=== PATIENT | female | born 1985 | race Two or more races ===

== ENCOUNTER 2022-01-02 07:40 | Emergency (ER) | payer OTHER ==
[~2022-01-02] VITALS: Ht 154.9 cm; Wt 86.2 kg
[2022-01-02 09:00] LABS: Albumin 3.6 g/dL (3.4-5.0); Calcium 8.9 mg/dL (8.5-10.1); Potassium 3.9 mmol/L (3.5-5.1)
[2022-01-02 09:04] LABS: BUN/Creatinine Ratio 9.5; Bilirubin, Total 0.4 mg/dL (0.2-1.0); Total Protein 7.8 g/dL (6.4-8.2)
[2022-01-02 09:26] LABS: Urine Bacteria FEW /hpf (None Seen); Urine Blood 3+ /uL (Negative); Urine Specific Gravity 1.019 (1.001-1.035); Urine WBC 4 /hpf (0 - 5)
[2022-01-02 13:00] VITALS: BP 138/88
== END 2022-01-02 15:50 | disposition home or self-care (01) ==
LOC: ER 07:40
DX: O41.8X91 Other specified disorders of amniotic fluid and membranes, unspecified trimester, fetus 1 (principal); Z3A.01 Less than 8 weeks gestation of pregnancy
CPT/HCPCS: 36415; 76801; 76817; 80053; 81001; 84702